=== PATIENT | male | born 1995 | race Caucasian/White ===

== ENCOUNTER 2018-09-25 12:54 | Emergency (ER) | payer BC ==
--- NOTE | 2018-09-25 15:23 | ER ---
Nurse's Notes [facility] Name: Jj Garcia Age: 23 yrs Sex: Male : 1995 Arrival Date: 09/25/2018 Time: 12:59 Bed 30 Private MD: Diagnosis: Pneumonia, unspecified organism Presentation: 09/25 13:09 Presenting complaint: Patient states: Fever yesterday of 103, today he has been having aj1 a cough and shortness of breath. Patient reports that he has been taking amoxicillin for a tooth infection. Transition of care: patient was not received from another setting of care. Onset of symptoms was September 25, 2018. Risk Assessment: Do you want to hurt yourself or someone else? Patient reports no desire to harm self or others. Initial Sepsis Screen: Does the patient meet any 2 criteria? HR > 90 bpm. No. Patient's initial sepsis screen is negative. Does the patient have a suspected source of infection? Yes: Productive cough/pneumonia. Care prior to arrival: None. 13:09 Method Of Arrival: Ambulatory aj 13:09 Acuity: VALDEMAR 4 aj1 Triage Assessment: 13:11 General: Appears in no apparent distress. uncomfortable, Behavior is calm. Pain: Denies aj1 pain. Neuro: Level of Consciousness is awake, alert, obeys commands. Cardiovascular: Patient's skin is warm and dry. Respiratory: Airway is patent Respiratory effort is even, unlabored, Respiratory pattern is regular, symmetrical. Historical: - Allergies: 13:11 [place] Oil; aj1 13:11 Latex, Natural Rubber; aj1 - Home Meds: 13:11 Amoxicillin Oral [Active]; aj1 - PMHx: 13:11 None; aj1 - PSHx: 13:11 None; aj1 - Immunization history:: Flu vaccine is not up to date. - Social history:: Smoking status: Patient/guardian denies using tobacco. - Ebola Screening: : Patient denies travel to an Ebola-affected area in the 21 days before illness onset. Screenin:20 Abuse screen: Denies threats or abuse. Denies injuries from another. Nutritional ca1 screening: No deficits noted. Tuberculosis screening: No symptoms or risk factors identified. Fall Risk None identified. Assessment: 13:20 General: Appears in no apparent distress. comfortable, Behavior is calm, cooperative, ca1 appropriate for age. General: Reports chills for feeling ill for > 3 days. Pain: Denies pain. Neuro: Level of Consciousness is awake, alert, obeys commands, Oriented to person, place, time, situation. Cardiovascular: Heart tones S1 S2 present Capillary refill < 3 seconds Patient's skin is warm and dry. Respiratory: Airway is patent Respiratory effort is even, unlabored, Respiratory pattern is regular, symmetrical. GI: Abdomen is flat, non-distended, Bowel sounds present X 4 quads. Abd is soft and non tender X 4 quads. : No deficits noted. No signs and/or symptoms were reported regarding the genitourinary system. EENT: No deficits noted. No signs and/or symptoms were reported regarding the EENT system. Derm: Skin is intact, is healthy with good turgor, Skin is pink, warm \T\ dry. Musculoskeletal: Circulation, motion, and sensation intact. Capillary refill < 3 seconds, Range of motion: intact in all extremities. 13:58 Reassessment: Patient appears in no apparent distress at this time. No changes from ca1 previously documented assessment. Patient is alert, oriented x 3, equal unlabored respirations, skin warm/dry/pink. 14:36 Reassessment: Patient appears in no apparent distress at this time. Patient is alert, ca1 oriented x 3, equal unlabored respirations, skin warm/dry/pink. 15:00 Reassessment: Pt to Xray. ca1 15:32 Reassessment: Patient appears in no apparent distress at this time. Patient and/or ca1 family updated on plan of care and expected duration. Pain level reassessed. Patient is alert, oriented x 3, equal unlabored respirations, skin warm/dry/pink. Vital Signs: 13:11 BP 125 / 78; Pulse 92; Resp 18; Temp 99.6(O); Pulse Ox 95% on R/A; Weight 104.33 kg aj1 (R); Height 6 ft. 2 in. (187.96 cm) (R); Pain 0/10; 13:58 BP 114 / 61; Pulse 78; Resp 17 S; Pulse Ox 95% on R/A; ca1 14:36 BP 100 / 86; Pulse 85; Resp 17 S; Temp 99(O); Pulse Ox 96% on R/A; ca1 15:32 BP 116 / 74; Pulse 84; Resp 17 S; Temp 98.7(O); Pulse Ox 96% on R/A; ca1 13:11 Body Mass Index 29.53 (104.33 kg, 187.96 cm) aj1 ED Course: 12:59 Patient arrived in ED. mr 13:10 Triage completed. aj1 13:11 Arm band placed on Patient placed in an exam room. aj1 13:20 Patient has correct armband on for positive identification. Bed in low position. Call ca1 light in reach. Side rails up X 1. Pulse ox on. NIBP on. Warm blanket given. 13:26 Nereyda Harper [facility]-C [facility]. snw 13:26 Dewey Rodriguez MD is Attending Physician. snw 13:35 Skylar Martinez, RN is Primary Nurse. ca1 14:13 EKG done, by senior cytogenetic technologist. reviewed by Nereyda ODEN. sm3 15:04 Chest Pa And Lat (2 Views) XRAY In Process Unspecified. EDMS 15:33 No provider procedures requiring assistance completed. Patient did not have IV access ca1 during this emergency room visit. Administered Medications: 15:32 Drug: Zithromax 500 mg Route: PO; ca1 15:32 Follow up: Response: Medication administered at discharge. ca1 Outcome: 15:21 Discharge ordered by . snw 15:33 Discharged to home ambulatory. ca1 15:33 Condition: stable 15:33 Discharge instructions given to patient, Instructed on discharge instructions, follow up and referral plans. medication usage, Demonstrated understanding of instructions, follow-up care, medications, Prescriptions given X 2. 15:34 Patient left the ED. ca1 Signatures: Dispatcher [employer] EDMS Monse Burleson, RN RN aj1 Nereyda Harper FNP-C FNP-Amos Pinky Diallo Shakira 3 Skylar Martinez RN RN ca1
--- NOTE | 2018-09-25 15:23 | EDPHYS ---
Physician Documentation [facility] Name: Jj Garcia Age: 23 yrs Sex: Male : 1995 Arrival Date: 09/25/2018 Time: 12:59 Bed 30 Private MD: ED Physician Dewey Rodriguez HPI: 09/25 14:17 This 23 yrs old Male presents to ER via Ambulatory with complaints of Cough, snw Fever. 14:17 The patient or guardian reports cough. Onset: The symptoms/episode began/occurred snw suddenly. Severity of symptoms: At their worst the symptoms were mild, moderate. Associated signs and symptoms: Pertinent positives: fever. It is unknown whether or not the patient has had similar symptoms in the past. The patient has been recently seen by a physician: I\T\D of dental abscess - pain resolved. Historical: - Allergies: 13:11 [place] Oil; aj1 13:11 Latex, Natural Rubber; aj1 - Home Meds: 13:11 Amoxicillin Oral [Active]; aj1 - PMHx: 13:11 None; aj1 - PSHx: 13:11 None; aj1 - Immunization history:: Flu vaccine is not up to date. - Social history:: Smoking status: Patient/guardian denies using tobacco. - Ebola Screening: : Patient denies travel to an Ebola-affected area in the 21 days before illness onset. ROS: 14:15 Constitutional: Negative for fever, chills, and weight loss. snw 14:15 Neck: Negative for injury, pain, and swelling, Cardiovascular: Negative for chest pain, palpitations, and edema, Respiratory: Negative for shortness of breath, cough, wheezing, and pleuritic chest pain, Abdomen/GI: Negative for abdominal pain, nausea, vomiting, diarrhea, and constipation, Back: Negative for injury and pain, : Negative for injury, bleeding, discharge, and swelling, MS/Extremity: Negative for injury and deformity, Skin: Negative for injury, rash, and discoloration, Neuro: Negative for headache, weakness, numbness, tingling, and seizure. 14:15 ENT: Positive for recent dental abscess I\T\D (three days ago, pt has had intermittent fever to 103 x 3 days. Exam: 14:14 Head/Face: Normocephalic, atraumatic. Eyes: Pupils equal round and reactive to light, snw extra-ocular motions intact. Lids and lashes normal. Conjunctiva and sclera are non-icteric and not injected. Cornea within normal limits. Periorbital areas with no swelling, redness, or edema. 14:14 Neck: Trachea midline, no thyromegaly or masses palpated, and no cervical lymphadenopathy. Supple, full range of motion without nuchal rigidity, or vertebral point tenderness. No Meningismus. Chest/axilla: Normal chest wall appearance and motion. Nontender with no deformity. No lesions are appreciated. Cardiovascular: Regular rate and rhythm with a normal S1 and S2. No gallops, murmurs, or rubs. Normal PMI, no JVD. No pulse deficits. Respiratory: Lungs have equal breath sounds bilaterally, clear to auscultation and percussion. No rales, rhonchi or wheezes noted. No increased work of breathing, no retractions or nasal flaring. Abdomen/GI: Soft, non-tender, with normal bowel sounds. No distension or tympany. No guarding or rebound. No evidence of tenderness throughout. Back: No spinal tenderness. No costovertebral tenderness. Full range of motion. Skin: Warm, dry with normal turgor. Normal color with no rashes, no lesions, and no evidence of cellulitis. MS/ Extremity: Pulses equal, no cyanosis. Neurovascular intact. Full, normal range of motion. Neuro: Awake and alert, GCS 15, oriented to person, place, time, and situation. Cranial nerves II-XII grossly intact. Motor strength 5/5 in all extremities. Sensory grossly intact. Cerebellar exam normal. Normal gait. Psych: Awake, alert, with orientation to person, place and time. Behavior, mood, and affect are within normal limits. 14:14 Constitutional: The patient appears alert, awake, anxious. 14:14 ENT: TM's: are normal, Nose: is normal, Dental exam: dental caries, fractured teeth are noted, specifically the lower right first molar (#30) and lower right second molar (#31), Voice: is normal. 14:20 ECG was reviewed by the Attending Physician. snw Vital Signs: 13:11 BP 125 / 78; Pulse 92; Resp 18; Temp 99.6(O); Pulse Ox 95% on R/A; Weight 104.33 kg aj1 (R); Height 6 ft. 2 in. (187.96 cm) (R); Pain 0/10; 13:58 BP 114 / 61; Pulse 78; Resp 17 S; Pulse Ox 95% on R/A; ca1 14:36 BP 100 / 86; Pulse 85; Resp 17 S; Temp 99(O); Pulse Ox 96% on R/A; ca1 15:32 BP 116 / 74; Pulse 84; Resp 17 S; Temp 98.7(O); Pulse Ox 96% on R/A; ca1 13:11 Body Mass Index 29.53 (104.33 kg, 187.96 cm) aj1 MDM: 13:33 Patient medically screened. jayson 15:22 Data reviewed: vital signs, nurses notes. Data interpreted: Pulse oximetry: on room air snw is 96 %. Interpretation: acceptable. Counseling: I had a detailed discussion with the patient and/or guardian regarding: the historical points, exam findings, and any diagnostic results supporting the discharge/admit diagnosis, the presence of at least one elevated blood pressure reading (>120/80) during this emergency department visit, lab results, radiology results, the need for outpatient follow up, to return to the emergency department if symptoms worsen or persist or if there are any questions or concerns that arise at home. Special discussion: I have referred the patient to see his PCP for further evaluation of high blood pressure. Based on the history and exam findings, there is no indication for further emergent testing or inpatient evaluation. I discussed with the patient/guardian the need to see the primary care provider for further evaluation of the symptoms. 09/25 13:13 Order name: Flu; Complete Time: 13:51 aj1 09/25 13:13 Order name: Strep; Complete Time: 13:51 aj1 09/25 13:51 Order name: Throat Culture EDMS 09/25 13:58 Order name: Chest Pa And Lat (2 Views) XRAY snw 09/25 13:58 Order name: EKG; Complete Time: 13:59 snw 09/25 13:58 Order name: EKG - Nurse/Tech; Complete Time: 14:08 snw Administered Medications: 15:32 Drug: Zithromax 500 mg Route: PO; ca1 15:32 Follow up: Response: Medication administered at discharge. ca1 Disposition: 09/26 07:03 Co-signature as Attending Physician, Dewey Rodriguez MD I agree with the assessment and [facility] plan of care. Disposition: 09/25/18 15:21 Discharged to Home. Impression: Pneumonia, unspecified organism. - Condition is Stable. - Discharge Instructions: Fever, Adult, Community-Acquired Pneumonia, Adult, Rehydration, Adult. - Prescriptions for Albuterol Sulfate 90 mcg/actuation - inhale 1-2 puff by INHALATION route every 4-6 hours; 1 Inhaler. Zithromax 500 mg Oral Tablet - take 1 tablet by ORAL route once daily for 5 days; 5 tablet. - Work release form, Medication Reconciliation Form, Thank You Letter, Antibiotic Education, Prescription Opioid Use form. - Follow up: Private Physician; When: 2 - 3 days; Reason: Recheck today's complaints, Continuance of care, Re-evaluation by your physician. Follow up: Emergency Department; When: As needed; Reason: Worsening of condition. - Notes: continue current antibiotics Signatures: Dispatcher [employer] EDMonse Pickett RN RN aj1 Dewey Rodriguez MD MD cha Therrien, Shelly, BOARD CERTIFIED MUSIC THERAPIST-C BOARD CERTIFIED MUSIC THERAPIST-Csnw Skylar Martinez RN RN ca1 Corrections: (The following items were deleted from the chart) 09/25 15:34 15:21 09/25/2018 15:21 Discharged to Home. Impression: Pneumonia, unspecified organism. ca1 Condition is Stable. Forms are Medication Reconciliation Form, Thank You Letter, Antibiotic Education, Prescription Opioid Use. Follow up: Private Physician; When: 2 - 3 days; Reason: Recheck today's complaints, Continuance of care, Re-evaluation by your physician. Follow up: Emergency Department; When: As needed; Reason: Worsening of condition. snw
[2018-09-25] MEDS ORDERED: AZITHROMYCIN 250 MG TAB ONE (15:40)
--- NOTE | 2018-09-25 16:08 | RAD REPORT ---
EXAM DESCRIPTION: RAD - Chest Pa And Lat (2 Views) - 09/25/2018 3:09 pm CLINICAL HISTORY: Fever, cough, shortness of breath COMPARISON: None. TECHNIQUE: PA and lateral views of the chest were obtained. FINDINGS: The lungs are normal volume. Interstitial and airspace opacification is present in the lef t lung base. No failure or volume overload. Heart size is normal and central vasculature is within normal limits. No pleural effusion or pneumothorax seen. No acute bony finding noted. No aortic ab normality. IMPRESSION: Small left lung base pneumonia.
--- NOTE | 2018-09-26 07:51 | EKG ---
Test Date: 2018-09-25 Test Time: 14:13:57 Senior Shipping Clerk: SIMI MEASUREMENT RESULTS: Intervals: Rate: 76 FL: 146 QRSD: 100 QT: 394 QTc: 443 [place]: P: 48 FL: 146 QRS: 88 T: 11 INTERPRETIVE STATEMENTS: Normal sinus rhythm Normal ECG No previous ECG available for comparison Electronically Signed On 09-26-18 07:50:47 CDT by Yifan Gilbert
== END 2018-09-25 15:34 | disposition home or self-care (01) ==
LOC: ER 12:54
DX: J18.9 Pneumonia, unspecified organism (principal); Z91.040 Latex allergy status
CPT/HCPCS: 71046; 87070; 87081; 87804; 93005; 99284